=== PATIENT | male | born 1995 | race Caucasian/White ===

== ENCOUNTER 2018-12-03 13:13 | Emergency (ER) | payer SELFPAY ==
[2018-12-03] MEDS ORDERED: Fluorescein Opthalmic Strip ONE (13:36)
[2018-12-03] MEDS ORDERED: Proparacaine 0.5% Opth 15 ML BOT ONE (13:37)
[2018-12-03] MEDS ORDERED: Adacel (T-DAP) 0.5 ML SYRINGE ONE (13:37)
== END 2018-12-03 14:24 | disposition home or self-care (01) ==
LOC: ERS 13:13
DX: T15.01XA Foreign body in cornea, right eye, initial encounter (principal); F17.210 Nicotine dependence, cigarettes, uncomplicated
CPT/HCPCS: 90715

== ENCOUNTER 2018-12-04 12:27 | Emergency (ER) | payer OTHER, SELFPAY ==
[2018-12-04] MEDS ORDERED: Fluorescein Opthalmic Strip ONE (14:02)
[2018-12-04] MEDS ORDERED: Proparacaine 0.5% Opth 15 ML BOT ONE (14:02)
== END 2018-12-04 15:06 ==
LOC: ERS 12:27
DX: S05.01XA Injury of conjunctiva and corneal abrasion without foreign body, right eye, initial encounter (principal); F17.210 Nicotine dependence, cigarettes, uncomplicated; W22.8XXA Striking against or struck by other objects, initial encounter
CPT/HCPCS: 99283